=== PATIENT | male | born 1975 | race Caucasian/White ===

== ENCOUNTER 2024-01-21 11:20 | Emergency (ER) | payer OTHER, SELFPAY ==
[2024-01-21 11:22] VITALS: BP 142/81
--- NOTE | 2024-01-21 12:41 | ED.GENMED ---
History of Present Illness
General
Chief Complaint: Skin Surface Trauma
Time Seen by Provider: 01/21/24 12:07
Travel History
Have you had any contact with someone who has COVID-19?: No
Do you have any symptoms of coronavirus? Fever > 100 degrees, chills, cough, shortness of breath, sore throat, loss of taste or smell, muscle aches, or headache?: No
History of Present Illness
History of Present Illness:
48-year-old male presents to the emergency department for evaluation of poison rossi to the right lower abdomen for the past 2 to 3 days. States he typically requires steroid medication due to 'severe allergy to poison rossi. He denies any associated
pain or fevers
Review of Systems
Review of Systems
Allergies reviewed?: Yes
All Other Systems: ROS reviewed and negative except as documented in HPI and ROS
Phy Exam
Physical Exam
Physical Exam:
GEN: Well appearing, NAD, WDWN
HEENT: Oral mucosa moist, no scleral icterus
Cardiac: Regular rate
Lung: No respiratory distress, no tachypnea
MSK: No gross deformity or injuries
Skin: Good color, no pallor or jaundice. Vesicular/streaky lesions to R lower abdomen with erythema c/w contact dermatitis. No lesions to adjacent low back suggestive of zoster
Neuro: AO x3, moves all extremities freely
Psych: Calm, cooperative
Course
Orders/Labs/Results
Orders:
Orders
01/21/24 12:43
MethylPREDNISolone PF [Solu-Medrol Pf] 60 mg IM NOW STA
Vital Signs
Initial and Last Documented VS:
Initial Vital Signs
Temp Pulse Resp BP Pulse Ox
97.9 F 75 16 142/81 100
01/21/24 11:22 01/21/24 11:22 01/21/24 11:22 01/21/24 11:22 01/21/24 11:22
Last Documented Vital Signs
Temp Pulse Resp BP Pulse Ox
97.9 F 75 16 142/81 100
01/21/24 11:22 01/21/24 11:22 01/21/24 11:22 01/21/24 11:22 01/21/24 11:22
MDM/Problems Addressed
MDM/Problems Addressed:
Will start PO steroids due to sizeable outbreak
*Critical Care Note
Total Time (30-74mins, 75-104mins- exclusive of procedures): Not Applicable
ED Attending Note
-
Portions of this chart may have been created with voice recognition software.� Occasional wrong word or��sound alike� substitutions may have occurred due to the inherent limitations of voice recognition software.
Discharge Plan
Departure
Patient Disposition: Home (Routine Discharge)
Date of Disposition: 01/21/24
Time of Disposition: 12:44
Patient with high blood pressure during this ER visit?: Yes
Discharge Problem:
Poison rossi dermatitis
Instructions: Poison Rossi, Poison [place], Poison [place] ED
Prescriptions:
New
prednisone 10 mg tablet
10 mg PO DIRECTED Qty: 43 0RF
Rx Instructions:
Once daily as follows: 60, 60, 50, 50, 40, 40, 30, 30, 20, 20, 10, 10
Discontinued
prednisone 10 MG tablet
10 mg PO .TAPER Qty: 45 0RF
Rx Instructions:
Take 50mg daily x3days, 40mg daily x3days,
30mg daily x3days, 20mg daily x3days,
10mg daily x3days
Referrals:
Cole Borrego DO [Family Provider] -
Interventions
Interventions:
*Risk Screen - Suicide Last Done: 01/21/24 11:23
*General Assessment Last Done: 01/21/24 11:23
*Neglect/Abuse Screening Last Done: 01/21/24 11:23
ED- Fall Risk Assessment Last Done: 01/21/24 13:01
*ED COVID-19 Vaccine History Last Done: 01/21/24 11:23
*Nursing Disposition Last Done: 01/21/24 13:01
ED-Skin Assessment Last Done: 01/21/24 13:01
Discharge Date and Time
Discharge Date/Time: 01/21/24 13:02
Print Language: KAZAKH
[2024-01-21] MEDS: SOLU-MEDROL PF 60 MG IM (12:57)
== END 2024-01-21 13:02 | disposition home or self-care (01) ==
LOC: EMR 11:20
PROVIDERS: EMERGENCY PHYSICIAN Emergency Medicine; FAMILY PHYSICIAN Family Medicine
DX: L23.7 Allergic contact dermatitis due to plants, except food (principal)
CPT/HCPCS: 99284; 96372

== ENCOUNTER 2024-04-25 10:55 | Emergency (ER) | payer OTHER, SELFPAY ==
[2024-04-25 11:19] VITALS: BP 132/81
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
== END 2024-04-25 12:17 | disposition home or self-care (01) ==
LOC: EMR 10:55
PROVIDERS: EMERGENCY PHYSICIAN Student in an Organized Health Care Education/Training Program; FAMILY PHYSICIAN Family Medicine
DX: L23.7 Allergic contact dermatitis due to plants, except food (principal)
CPT/HCPCS: 99282